=== PATIENT | female | born 1990 | race Caucasian/White ===

== ENCOUNTER 2025-04-14 20:24 | Emergency (ER) | payer OTHER, SELFPAY ==
[2025-04-14 20:33] VITALS: BP 155/85; PULSE 56; RESP 16; TEMP 36.8; O2SAT 98; BMI 27.4
[2025-04-14 21:25] LABS: Culture Indicated Urine Specimen Cultured
--- NOTE | 2025-04-14 22:28 | ED.FEMALEGU ---
HPI - Female Genitourinary <Kana Quintana MD - Last Filed: 04/14/25 22:44> General Chief complaint: Urogenital-Female Stated complaint: uti Time Seen by Provider: 04/14/25 21:27 Source: patient Mode of arrival: Ambulatory History of Present Illness HPI Narrative: This is a 34-year-old white female presents to the emergency room with about a week of vaginal discharge and dysuria. Patient denied any vaginal bleeding patient denied any flank pain or abdominal pain. Patient states it has gotten worse over the past couple of days. Related Data Previous Rx's ?Medication ?Instructions ?Recorded metronidazole 500 mg tablet 500 mg PO BID #14 tabs 04/15/25 Allergies Allergy/AdvReac Type Severity Reaction Status Date / Time No Known Drug Allergies Allergy Verified 04/14/25 20:32 Review of Systems <Kana Quintana MD - Last Filed: 04/14/25 22:44> Review of Systems Narrative: GENERAL: Denies chills, fatigue, malaise, fever, sweats. HEENT: Denies sinus pain, ear pain, sore throat, difficulty swallowing, dizziness. RESPIRATORY: Denies dyspnea, cough, wheezing, hemoptysis, sputum. CARDIOVASCULAR: Denies chest pain, palpitations, orthopnea, edema, GASTROINTESTINAL: Denies nausea, vomiting, abdominal pain, diarrhea, constipation, melena. : See HPI MUSCULOSKELETAL: denies weakness, joint pain, or bony pain SKIN: Denies rash, skin lesions, or other NEUROLOGIC: Denies weakness, headache, numbness, change in speech, confusion, seizures, incoordination. PSYCHIATRIC: No concerning psychosocial issues. 12 point review of systems is negative except for those stated above Exam <Kana Quintana MD - Last Filed: 04/14/25 22:44> Narrative Exam Narrative: GENERAL: [] year old patient appears stated age. Well-developed patient, in mild distress. HEAD: Atraumatic. Normocephalic. EYES: Pupils equal round and reactive. Extraocular motions intact. No scleral icterus. No injection or drainage. ENT: Nose without bleeding, purulent drainage. Throat without erythema, tonsillar hypertrophy or exudate. Airway patent. NECK: Trachea midline. Non tender CARDIOVASCULAR: Regular rate and rhythm without murmurs, gallops, or rubs. RESPIRATORY: Clear to auscultation. Breath sounds equal bilaterally. No wheezes, rales, or rhonchi. GASTROINTESTINAL: Abdomen soft, non-tender, nondistended. : The labia without lesions there is copious exudate noted in the vaginal vault there is no cervical motion tenderness uterus is firm adnexa are nontender EXTREMITIES: No edema or joint tenderness. BACK: Nontender without deformity or crepitance. No flank tenderness. NEURO: AOx3. SKIN: No rash or erythema of visible areas Initial Vital Signs Initial Vital Signs: Vital Signs Temperature 98.3 F 04/14/25 20:33 Pulse Rate 56 L 04/14/25 20:33 Respiratory Rate 16 04/14/25 20:33 Blood Pressure 155/85 H 04/14/25 20:33 Pulse Oximetry 98 04/14/25 20:33 Oxygen Delivery Method Room Air 04/14/25 20:33 <Katie Victor DO - Last Filed: 04/15/25 01:29> Initial Vital Signs Initial Vital Signs: Vital Signs Temperature 98.3 F 04/14/25 20:33 Pulse Rate 56 L 04/14/25 20:33 Respiratory Rate 16 04/14/25 20:33 Blood Pressure 155/85 H 04/14/25 20:33 Pulse Oximetry 98 04/14/25 20:33 Oxygen Delivery Method Room Air 04/14/25 20:33 Course <Kana Quintana MD - Last Filed: 04/14/25 22:44> Orders Ordered: ED Orders 04/14/25 20:55 Chlamydia Gonorrhea PCR -URINE Stat Urine Culture Stat Urine Microscopic Stat 04/14/25 22:30 Genital Culture Stat Wet Prep Tric BV [place] Stat Discontinued Medications Metronidazole (Metronidazole 500 Mg Tablet) 500 mg PO NOW ONE Stop: 04/15/25 00:56 Last Admin: 04/15/25 01:12 Dose: 500 mg Documented By: Vital Signs Vital signs: Vital Signs - 8 hr 04/14/25 20:33 04/15/25 01:14 Temperature 98.3 F 97.9 F Pulse Rate 56 L 55 L Respiratory Rate 16 18 Blood Pressure 155/85 H 142/85 H Pulse Oximetry 98 100 Oxygen Delivery Method Room Air Room Air <DO Yudy Arreaga Last Filed: 04/15/25 01:29> Orders Ordered: ED Orders 04/14/25 20:55 Chlamydia Gonorrhea PCR -URINE Stat Urine Culture Stat Urine Microscopic Stat 04/14/25 22:30 Genital Culture Stat Wet Prep Tric BV [place] Stat Discontinued Medications Metronidazole (Metronidazole 500 Mg Tablet) 500 mg PO NOW ONE Stop: 04/15/25 00:56 Last Admin: 04/15/25 01:12 Dose: 500 mg Documented By: QUOC Vital Signs Vital signs: Vital Signs - 8 hr 04/14/25 20:33 04/15/25 01:14 Temperature 98.3 F 97.9 F Pulse Rate 56 L 55 L Respiratory Rate 16 18 Blood Pressure 155/85 H 142/85 H Pulse Oximetry 98 100 Oxygen Delivery Method Room Air Room Air MDM - Female Genitourinary <Kana Quintana MD - Last Filed: 04/14/25 22:44> Lab Data Labs: Lab Results 04/14/25 Range/Units 20:55 Urine RBC 0-1/hpf (0-5/HPF) Urine WBC 5-10/hpf H (0-5/HPF) Ur Squamous Epith Cells 0-1 /hpf (0-5/HPF) Urine Bacteria None seen (None) Ur Culture Indicated? Specimen cultured Vol Urine Centrifuged 10ml (spun) Ur Chlamydia DNA (PCR) Not detected N gonorrhoeae DNA (PCR) Not detected Point of Care Testing Test Results Negative Urine Dip Bedside Urine Glucose Negative Bedside Urine Bilirubin - Negative Bedside Urine Ketone - Negative Urine Specific [place] 1.010 Bedside Urine Occult Blood +/- Bedside Urine pH 7.0 Bedside Urine Protein - Negative Bedside Urine Urobilinogen - Negative Bedside Urine Nitrite - Negative Bedside Urine Leukocytes + 70 Esterase MDM Narrative Medical decision making narrative: Patient complaining of vaginal discharge and pain with urination the urinalysis has sterile pyuria. The general results were pending. The is negative I will sign out the patient to Dr. victor for final disposition differential diagnosis GC chlamydia bacterial vaginosis <Katie Victor DO - Last Filed: 04/15/25 01:29> Lab Data Labs: Lab Results 04/14/25 Range/Units 20:55 Urine RBC 0-1/hpf (0-5/HPF) Urine WBC 5-10/hpf H (0-5/HPF) Ur Squamous Epith Cells 0-1 /hpf (0-5/HPF) Urine Bacteria None seen (None) Ur Culture Indicated? Specimen cultured Vol Urine Centrifuged 10ml (spun) Ur Chlamydia DNA (PCR) Not detected N gonorrhoeae DNA (PCR) Not detected Point of Care Testing Test Results Negative Urine Dip Bedside Urine Glucose Negative Bedside Urine Bilirubin - Negative Bedside Urine Ketone - Negative Urine Specific [place] 1.010 Bedside Urine Occult Blood +/- Bedside Urine pH 7.0 Bedside Urine Protein - Negative Bedside Urine Urobilinogen - Negative Bedside Urine Nitrite - Negative Bedside Urine Leukocytes + 70 Esterase MDM Narrative Medical decision making narrative: Patient complaining of vaginal discharge and pain with urination the urinalysis has sterile pyuria. The general results were pending. The is negative I will sign out the patient to Dr. victor for final disposition differential diagnosis GC chlamydia bacterial vaginosis. 04/14/25 Dr. Victor: Patient signed out to myself while results were pending. Patient is seen and evaluated by myself she did have pelvic exam with Dr. Quintana who noted discharge but no cervical motion tenderness. urine GC is negative wet prep positive for clue cells. urine shows 5-10 white cells 1 red cell 1 squamous no bacteria, positive for leukocyte esterase no nitrates. Point of care is negative. we will treat for bacterial vaginosis. discussed findings with the patient, she we would like to start oral antibiotic preferentially over intravaginal. We will give 1st dose here in the department discussed return precautions that she will have not a pending culture reviewed all of her findings from this evening. Discharge Plan Departure Patient Disposition: Home Clinical Impression: Bacterial vaginosis Instructions: DI for Bacterial Vaginosis Activity Restrictions/Additional Instructions: Follow up for recheck after you have completed treatment. You do have a genital culture pending, if this shows any additional bacteria or infections you will be contacted. If negative you will not be contacted. This culture typically takes 48-72 hours to result Take antibiotics until completed. Prescription sent to [facility] in [place]. This antibiotic can cause vomiting if you drink alcohol with it so abstain or avoid alcohol until you have completed your oral antibiotics. No sexual activity until you have completed your treatment. Please return if you develop fevers, new or worsening abdominal back or flank pain, persistent vomiting, difficulties or changes with urination or other new or concerning changes. Prescriptions: New metronidazole 500 mg tablet 500 mg PO BID Qty: 14 0RF Referrals: Provider,Laura CARR [Primary Care Provider, Family Practice] Stand Alone Forms: Patient Portal/API
[2025-04-15 00:24] LABS: Urine N gonorrhoeae NOT DETECTED
[2025-04-15 00:33] LABS: Urine Chlamydia NOT DETECTED
[2025-04-15 01:14] VITALS: BP 142/85; PULSE 55; RESP 18; TEMP 36.6; O2SAT 100
== END 2025-04-15 01:16 | disposition home or self-care (01) ==
PROVIDERS: Emergency Medicine; Emergency Provider Emergency Medicine
DX: N76.0 Acute vaginitis (principal)
CPT/HCPCS: 81003; 81015; 81025; 87070; 87077; 87086; 87186; 87205; 87210; 87491; 87591; 99283